=== PATIENT | male | born 1975 | race Caucasian/White ===

== ENCOUNTER 2017-01-30 15:13 | Emergency (ER) | payer SELFPAY | END 2017-01-30 16:06 | disposition home or self-care (01) | LOC: ER1 15:13 | DX: M54.2 Cervicalgia (principal); R07.0 Pain in throat; F17.200 Nicotine dependence, unspecified, uncomplicated | CPT/HCPCS: 70360; 99283 ==

== ENCOUNTER 2017-02-26 12:09 | Emergency (ER) | payer OTHER | END 2017-02-26 13:00 | disposition home or self-care (01) | LOC: ER1 12:09 | DX: I10 Essential (primary) hypertension (principal); F17.210 Nicotine dependence, cigarettes, uncomplicated; Z79.899 Other long term (current) drug therapy | CPT/HCPCS: 36415; 99283 ==

== ENCOUNTER → 2020-12-02 | Outpatient (CLI) | payer OTHER ==
[~2020-12-02] MED LIST: AMOXICILLIN875 MG PO; BENADRYL 25MG C25 MG PO; KEFLEX CAP 500500 MG PO
== END ==
LOC: RAD 16:03
DX: M70.41 Prepatellar bursitis, right knee (principal); M79.89 Other specified soft tissue disorders
CPT/HCPCS: 73562

== ENCOUNTER 2021-06-16 13:31 | Emergency (ER) | payer OTHER ==
[2021-06-16] MEDS ORDERED: NAPROSYN500 MG PO (15:16)
[2021-06-16] MEDS ORDERED: CYCLOBENZAPRINE10 MG PO (15:16)
== END 2021-06-16 15:38 | disposition home or self-care (01) ==
LOC: ER1 13:31
DX: S16.1XXA Strain of muscle, fascia and tendon at neck level, initial encounter (principal); S40.022A Contusion of left upper arm, initial encounter; V49.40XA Driver injured in collision with unspecified motor vehicles in traffic accident, initial encounter; F17.210 Nicotine dependence, cigarettes, uncomplicated; Y92.410 Unspecified street and highway as the place of occurrence of the external cause
CPT/HCPCS: 72125; 73080; 99284

== ENCOUNTER 2021-09-01 17:28 | Emergency (ER) | payer OTHER ==
[~2021-09-01 17:28] MED LIST changes: +CYCLOBENZAPRINE10 MG PO; +NAPROSYN500 MG PO
== END 2021-09-01 17:45 | disposition left against medical advice (07) ==
LOC: ER1 17:28
DX: Z53.21 Procedure and treatment not carried out due to patient leaving prior to being seen by health care provider (principal)